=== PATIENT | female | born 1945 | race Caucasian/White ===

== ENCOUNTER 2018-11-20 14:11 | Emergency (ER) | payer MEDICARE, OTHER ==
[~2018-11-20] VITALS: Ht 162.6 cm; Wt 54.4 kg
[~2018-11-20 14:11] MED LIST: APTIOM600 MG PO; APTIOM800 MG PO; ASPI325 PO; ATOR10 PO; CALMAGZIN PO; CARV25 PO; CATAFLAM PO; CELE200 PO; CITA10S PO; CLON.2 PO; CLON1 PO; CLOP75 PO; Catapres0.2 MG PO; Coq-10100 MG PO; DEXILANT60 MG PO; DEXL60CA3 PO; DIAZ1KIT4; DIAZ1KIT4 PR; DICL25ER PO; DOCU100 PO; Diclofenac Sodi50 MG PO; ENABLEX PO; ESCI10 PO; FERR325 PO; FLUT.05NI; Flonase 0.05% N16 GM; GABA300 PO; IBUHYD PO; Keppra1000 MG PO; LAMO100 PO; LAMO25 PO; LEVE500 PO; LEVOFLOXACIN500 MG PO; LEVSOD25 PO; LEVSOD50 PO; LEVSOD75 PO; LORA.5 PO; LOSA50 PO; Lamictal200 MG PO; MIRABEGRON PO; MULVITMIND PO; MYRBETRIQ; MYRBETRIQ25 MG PO; NIFE30ER PO; OMEP40CA12 PO; OXCA300 PO; OXYC5 PO; PANT40 PO; RXLORA1 PO; TEMA30 PO; TOVIAZ; TRAACE PO; TRAZ150T57 PO; TRAZ50 PO; TRIHYD253A PO; VALS80 PO; VICODIN 5-3001 EACH PO; VITAMIN D5000 UNIT PO; [UNRECOGNIZED DRUG - OTHER]; [UNRECOGNIZED DRUG - OTHER] RC
[2018-11-20] MEDS ORDERED: FYCOMPA8 MG PO (14:21)
[2018-11-20] MEDS ORDERED: AMLO10 PO (14:22)
[2018-11-20] MEDS ORDERED: Protonix40 MG PO (14:22)
[2018-11-20] MEDS ORDERED: Aspirin EC81 MG PO (14:33)
[2018-11-20] MEDS ORDERED: Acetaminophen-1 EAC1 PO (16:58)
== END 2018-11-20 17:12 | disposition home or self-care (01) ==
LOC: ER 14:11
DX: S43.035A Inferior dislocation of left humerus, initial encounter (principal); W01.0XXA Fall on same level from slipping, tripping and stumbling without subsequent striking against object, initial encounter; I10 Essential (primary) hypertension; Z88.8 Allergy status to other drugs, medicaments and biological substances; Z88.5 Allergy status to narcotic agent; Z79.899 Other long term (current) drug therapy; Z79.82 Long term (current) use of aspirin
CPT/HCPCS: 23650; 73020; 73030; 96374-59; 99152; 99283-25; J2704; J3010; J7030

== ENCOUNTER 2019-04-09 15:49 | Observation (INO) | payer MEDICARE, OTHER ==
[~2019-04-09] VITALS: Ht 162.6 cm; Wt 63.5 kg
[~2019-04-09 15:49] MED LIST changes: +AMLO10 PO; +Acetaminophen-1 EAC1 PO; +Aspirin EC81 MG PO; +FYCOMPA8 MG PO; +Protonix40 MG PO
[2019-04-09 16:21] LABS: BASOPHILS ABSOLUTE AUTO 0.04 K/mm3 (0.00-0.23); BASOPHILS PERCENT AUTO 1 % (0-2); EOSINOPHILS ABSOLUTE AUTO 0.16 K/mm3 (0.00-0.68); EOSINOPHILS PERCENT AUTO 3 % (0-6); Hematocrit 35.5 % (33.0-51.0); Hemoglobin 11.7 g/dL (11.5-16.0); IMMATURE GRAN ABSOLUTE AUTO 0.05 K/mm3 (0.00-0.10); IMMATURE GRAN PERCENT AUTO 1 % (0-1); LYMPHOCYTES PERCENT AUTO 25 % (21-46); MONOCYTES ABSOLUTE AUTO 0.25 K/mm3 (0.16-1.47); MONOCYTES PERCENT AUTO 5 % (4-13); Mean Corpuscular HGB 32.2 pg (26.0-34.0); Mean Corpuscular Volume 98 fL (80-100); Mean Platelet Volume 10.4 fL (9.1-12.4); NEUTROPHILS ABSOLUTE AUTO 3.38 K/mm3 (1.96-9.15); NEUTROPHILS PERCENT AUTO 65 % (41-73); Platelet Count 289 K/mm3 (150-400); RDW Coefficient Variation 11.9 % (11.7-14.2); RDW Standard Deviation 43.6 fL (35.1-46.3); Red Blood Cell Count 3.63 M/mm3 (3.80-5.20); White Blood Cell Count 5.18 K/mm3 (4.00-11.30)
[2019-04-09 16:34] LABS: Source, Urine Clean Catch
[2019-04-09] MEDS ORDERED: DIAZ1KIT4 PR (16:38)
[2019-04-09] MEDS ORDERED: CLON1 PO (16:39)
[2019-04-09 16:46] LABS: Bilirubin, Urine Neg (Neg); Blood, Urine Neg (Neg); Glucose Qualitative, Urine Neg (Neg); Ketones, Urine 1+ (Neg); Leukocyte Esterase, Urine Neg (Neg); Nitrite, Urine Neg (Neg); Protein, Urine 2+ (Neg); Specific Gravity, Urine 1.015 (1.003-1.022); Urobilinogen, Urine NORM (Normal)
[2019-04-09 17:04] LABS: U Amphetamine Screen Not Detected; U Barbituate Screen Not Detected; U Benzodiazapine Screen Not Detected; U Buprenorphine Screen Not Detected; U Cannabinoids Screen Not Detected; U Cocaine Screen Not Detected; U Methadone Screen Not Detected; U Methamphetamine Screen Not Detected; U Opiates Screen Not Detected; U Oxycodone Screen Not Detected; U Phencyclidine Screen Not Detected; U Propoxyphene Screen Not Detected
[2019-04-09 17:08] LABS: Alanine Aminotransfer (ALT/SGP 15 U/L (12-78); Albumin, Blood 3.6 g/dL (3.4-5.0); Albumin/Globulin Ratio 1.2 (0.8-1.8); Alk Phos 69 U/L (50-136); Anion Gap 9 mmol/L (6-16); Aspartate Aminotrans (AST/SGOT 13 U/L (12-37); Bilirubin, Total 0.4 mg/dL (0.1-1.0); Blood Urea Nitrogen 17 mg/dL (8-24); Bun/Creatinine Ratio 29.1 (12.0-20.0); CO2, Blood 25 mmol/L (21-32); Chloride, Blood 105 mmol/L (98-108); Creatinine, Blood 0.59 mg/dL (0.40-1.00); Globulin, Blood 3.1 g/dL (2.2-4.0); Glomerular Filtration Rate >60 (60-); Glucose, Blood 88 mg/dL (70-99); Magnesium, Blood 1.8 mg/dL (1.6-2.4); Potassium, Blood 3.5 mmol/L (3.5-5.5); Sodium, Blood 139 mmol/L (136-145); Total Protein, Blood 6.7 g/dL (6.4-8.2)
[2019-04-09 17:13] LABS: Appearance, Urine Clear (Clear); Color, Urine Yellow (P-Yellow)
[2019-04-09 17:14] LABS: Bacteria Rare /hpf; Red Blood Cells, Urine 0-2 /hpf (0-2); Squamous Epithelial Cells Rare /hpf (Few); White Blood Cells, Urine 0-2 /hpf (0-5)
--- NOTE | 2019-04-09 20:30 | NUR ---
RECEIVED HAND OFF FROM MELVIN BOLTON IN ER USING SBAR. TRANSPORTED TO ROOM 339 VIA STRETCHER. TRANSFERED SELF FROM STRETCHER TO BED WITH STANDBY ASSISTANCE, TOLERATED WELL. AAO X3, BISWAS, FOLLOWS ALL COMMANDS. ORIENTED TO ROOM, CALL SYSTEM, AND POC, VOICES UNDERSTANDING. RESPIRATIONS EVEN AND UNLABORED ON ROOM AIR. LUNG SOUNDS CLEAR BILATERALLY. ABDOMEN SOFT AND NONDISTENDED. BOWEL SOUNDS PRESENT IN ALL QUADS. SEIZURE PRECAUTIONS IN PLACE. LEFT AC SL PIV IS PATENT, FLUSHING WITH EASE. REQUESTS A GLASS OF WATER AND AN EXTRA BLANKET. DENIES PAIN, DISCOMFORT, OR FURTHER NEEDS AT THIS TIME. ADMISSION ASSESSMENT IN PROGRESS. SAFETY MEASURES IN PLACE. WILL CONTINUE TO MONITOR.
[2019-04-09] MEDS ORDERED: Flonase 0.05% N16 GM (20:31)
[2019-04-09] MEDS ORDERED: PANT40 PO (20:34)
[2019-04-09] MEDS ORDERED: LUTEIN-ZEAXANT1 EACH PO (20:35)
--- NOTE | 2019-04-10 07:24 | NUR ---
SHIFT SUMMARY HAS RESTED WELL SINCE ADMISISON THIS SHIFT. NO EVEIDENCE OF SEIZURE ACTIVITY. HAS BEEN PLEASANT AND COOPERATIVE. DENEIS FURTHER NEEDS OR WANTS AT THIS TIME. SAFETY MEASURES IN PLACE. WILL CONTINUE TO MONITOR.
--- NOTE | 2019-04-10 12:58 | NUR ---
pt discharged THE PT AND HER FAMILY VERBALIZED UNDERSTANDING OF THE DC INSTRUCTIONS, PT REPORTED NO SEIZURE ACTIVITY OVER NIGHT AND NO SEIZURE WAS WITNESSED BY THE STAFF, PT WAS INSTRUCTED TO FOLLOW UPP WITH HER PCP AND NEUROLOGIST IN THE AM 04/11/19, PT TRANSFERED VIA WHEELCHAIR ACCOMPANIED BY THE CAR RENTAL AGENT AND HER FAMILY
== END 2019-04-10 13:30 | disposition home or self-care (01) ==
LOC: ER 15:49 → MEDS 15:50
PROVIDERS: Physician Assistant; ADMIT Hospitalist
DX: I69.398 Other sequelae of cerebral infarction (principal); R56.9 Unspecified convulsions; I69.351 Hemiplegia and hemiparesis following cerebral infarction affecting right dominant side; I69.320 Aphasia following cerebral infarction; I69.318 Other symptoms and signs involving cognitive functions following cerebral infarction; E03.9 Hypothyroidism, unspecified; E78.5 Hyperlipidemia, unspecified; I10 Essential (primary) hypertension; Z88.5 Allergy status to narcotic agent; Z88.8 Allergy status to other drugs, medicaments and biological substances; Z79.82 Long term (current) use of aspirin; Z79.899 Other long term (current) drug therapy
CPT/HCPCS: 51701; 70450; 71045; 80053; 80175; 80177; 81001; 83735; 85025; 90686; 93005; 93010; 99285-25; A9270; G0008; G0378

== ENCOUNTER 2019-11-30 08:15 | Day surgery (SDC) | payer MEDICARE, OTHER ==
[~2019-11-30] VITALS: Ht 157.5 cm; Wt 60.5 kg
[~2019-11-30 08:15] MED LIST changes: +LUTEIN-ZEAXANT1 EACH PO
--- NOTE | 2019-11-30 09:09 | NUR ---
11/30/[address] AT BEDSIDE INJECTED 10CC 2% LIDOCAINE W 1:100,000 EPI INTO RIGHT WRIST. PT MONITERED VIA PULSE OX.
--- NOTE | 2019-11-30 09:17 | NUR ---
11/30/19 0917 Timothy Bernal PT REPORTS CHLORAHEXIDINE ALLERGY, DR JACKSON AWARE. DR JACKSON OKAY WITH USING DURAPREP INSTEAD OF CHLORAPREP. PT HAS BANDAID COVERING SMALL RED DOT ON RIGHT FOREARM. THIS WAS NOTED BEFORE APPLYING 1010 DRAPE TO FOREARM.
== END 2019-11-30 10:25 | disposition home or self-care (01) ==
LOC: ORSCSDS 08:15
PROVIDERS: Orthopaedic Surgery
PROC: 01N54ZZ Release Median Nerve, Percutaneous Endoscopic Approach (ICD-10-PCS; principal; 2019-11-30 09:30)
DX: G56.01 Carpal tunnel syndrome, right upper limb (principal); I10 Essential (primary) hypertension; G47.33 Obstructive sleep apnea (adult) (pediatric); K21.9 Gastro-esophageal reflux disease without esophagitis; E78.00 Pure hypercholesterolemia, unspecified; G40.909 Epilepsy, unspecified, not intractable, without status epilepticus; I69.311 Memory deficit following cerebral infarction; Z79.899 Other long term (current) drug therapy
CPT/HCPCS: J1885; J2250; J2704; J3010; J7120

== ENCOUNTER → 2020-08-31 | Outpatient (CLI) | payer MEDICARE, OTHER ==
[2020-08-31 12:43] LABS: CHOL/HDL RATIO 2.7; Cholesterol 189 mg/dL (50-200); HDL Cholesterol 71 mg/dL (>39); LDL/HDL RATIO 1.4; Low Density Lipoprotein Chol 98 mg/dL (0-110); Triglycerides 99 mg/dL (30-160); Very Low Density Lipoprot Chol 19 mg/dL (6-32)
== END | disposition home or self-care (01) ==
LOC: LAB 10:39 → LAB SHORT 10:39
PROVIDERS: Psychiatry & Neurology Neurology
DX: E78.5 Hyperlipidemia, unspecified (principal); I67.9 Cerebrovascular disease, unspecified
CPT/HCPCS: 36415; 80061

== ENCOUNTER 2022-03-24 16:34 | Emergency (ER) | payer MEDICARE, OTHER ==
[~2022-03-24] VITALS: Ht 165.1 cm; Wt 63.5 kg
[~2022-03-24 16:34] MED LIST changes: +ONDA4ODT MM
[2022-03-24 17:31] LABS: BASOPHILS ABSOLUTE AUTO 0.05 K/mm3 (0.00-0.23); BASOPHILS PERCENT AUTO 1 % (0-2); EOSINOPHILS ABSOLUTE AUTO 0.08 K/mm3 (0.00-0.68); EOSINOPHILS PERCENT AUTO 1 % (0-6); Hematocrit 38.8 % (33.0-51.0); IMMATURE GRAN ABSOLUTE AUTO 0.04 K/mm3 (0.00-0.10); IMMATURE GRAN PERCENT AUTO 1 % (0-1); LYMPHOCYTES ABSOLUTE AUTO 2.13 K/mm3 (0.84-5.20); LYMPHOCYTES PERCENT AUTO 27 % (21-46); MONOCYTES ABSOLUTE AUTO 0.56 K/mm3 (0.16-1.47); MONOCYTES PERCENT AUTO 7 % (4-13); Mean Corpuscular HGB 31.8 pg (26.0-34.0); Mean Corpuscular HGB Conc 33.5 g/dL (31.5-36.5); Mean Corpuscular Volume 95 fL (80-100); Mean Platelet Volume 10.5 fL (9.1-12.4); NEUTROPHILS ABSOLUTE AUTO 5.06 K/mm3 (1.96-9.15); NEUTROPHILS PERCENT AUTO 64 % (41-73); Platelet Count 293 K/mm3 (150-400); RDW Coefficient Variation 12.7 % (11.7-14.2); RDW Standard Deviation 44.3 fL (35.1-46.3); Red Blood Cell Count 4.09 M/mm3 (3.80-5.20); White Blood Cell Count 7.92 K/mm3 (4.00-11.30)
[2022-03-24 17:51] LABS: Albumin, Blood 4.3 g/dL (3.4-5.0); Albumin/Globulin Ratio 1.3 (0.8-1.8); Bilirubin, Total 0.2 mg/dL (0.1-1.0); Bun/Creatinine Ratio 20.7 (12.0-20.0); Calcium, Blood 9.6 mg/dL (8.5-10.1); Creatinine, Blood 0.77 mg/dL (0.40-1.00); Globulin, Blood 3.3 g/dL (2.2-4.0); Potassium, Blood 4.2 mmol/L (3.5-5.5); Total Protein, Blood 7.6 g/dL (6.4-8.2)
== END 2022-03-24 23:07 | disposition home or self-care (01) ==
LOC: ER 16:34
PROVIDERS: Physician Assistant
DX: Z04.89 Encounter for examination and observation for other specified reasons (principal); I10 Essential (primary) hypertension; E03.9 Hypothyroidism, unspecified; E78.5 Hyperlipidemia, unspecified; Z79.82 Long term (current) use of aspirin; Z79.890 Hormone replacement therapy; Z79.899 Other long term (current) drug therapy; Z88.5 Allergy status to narcotic agent; Z88.8 Allergy status to other drugs, medicaments and biological substances; Z86.73 Personal history of transient ischemic attack (TIA), and cerebral infarction without residual deficits
CPT/HCPCS: 36415; 80053; 85025

== ENCOUNTER 2022-10-03 10:12 | Day surgery (SDC) | payer MEDICARE, OTHER ==
[~2022-10-03] VITALS: Ht 157.5 cm; Wt 62.1 kg
[2022-10-03] MEDS ORDERED: Amlodipine Bes2.5 MG (11:03)
[2022-10-03 13:50] VITALS: BP 125/80
== END 2022-10-03 13:00 | disposition home or self-care (01) ==
LOC: ORSCSDS 10:12
PROVIDERS: Student in an Organized Health Care Education/Training Program
PROC: 0DBK8ZX Excision of Ascending Colon, Via Natural or Artificial Opening Endoscopic, Diagnostic (ICD-10-PCS; principal; 2022-10-03 12:00)
PROC: 0DBH8ZX Excision of Cecum, Via Natural or Artificial Opening Endoscopic, Diagnostic (ICD-10-PCS; principal; 2022-10-03 12:00)
DX: R10.9 Unspecified abdominal pain (principal); Z80.0 Family history of malignant neoplasm of digestive organs; D12.2 Benign neoplasm of ascending colon; D12.0 Benign neoplasm of cecum; K57.30 Diverticulosis of large intestine without perforation or abscess without bleeding; K62.89 Other specified diseases of anus and rectum; I10 Essential (primary) hypertension; E78.5 Hyperlipidemia, unspecified; R10.32 Left lower quadrant pain; Z86.73 Personal history of transient ischemic attack (TIA), and cerebral infarction without residual deficits; R56.9 Unspecified convulsions; M19.90 Unspecified osteoarthritis, unspecified site; K21.9 Gastro-esophageal reflux disease without esophagitis; Z79.82 Long term (current) use of aspirin; Z79.899 Other long term (current) drug therapy
CPT/HCPCS: 88305; J2704; J7120

== ENCOUNTER 2023-04-23 18:10 | Emergency (ER) | payer MEDICARE, OTHER ==
[~2023-04-23] VITALS: Ht 160 cm; Wt 65.8 kg
[~2023-04-23 18:10] MED LIST changes: +Amlodipine Bes2.5 MG
[2023-04-23 18:27] VITALS: BP 142/80
[2023-04-23] MEDS ORDERED: FYCOMPA8 MG PO (19:47)
== END 2023-04-23 20:42 | disposition home or self-care (01) ==
LOC: ER 18:10
DX: S00.83XA Contusion of other part of head, initial encounter (principal); I10 Essential (primary) hypertension; E78.5 Hyperlipidemia, unspecified; E03.9 Hypothyroidism, unspecified; Z86.73 Personal history of transient ischemic attack (TIA), and cerebral infarction without residual deficits; Z79.899 Other long term (current) drug therapy; Z88.5 Allergy status to narcotic agent; Z88.8 Allergy status to other drugs, medicaments and biological substances; W05.0XXA Fall from non-moving wheelchair, initial encounter
CPT/HCPCS: 70450; 99284-25

== ENCOUNTER 2025-03-07 18:38 | Inpatient (IN) | payer MEDICARE, OTHER ==
[~2025-03-07] VITALS: Ht 160 cm; Wt 64.0 kg
[~2025-03-07 18:38] MED LIST changes: +ATOR20 PO; +ESCI20 PO
[2025-03-07 19:16] LABS: BASOPHILS ABSOLUTE AUTO 0.05 K/mm3 (0.00-0.23); BASOPHILS PERCENT AUTO 0 % (0-2); EOSINOPHILS ABSOLUTE AUTO 0.03 K/mm3 (0.00-0.68); EOSINOPHILS PERCENT AUTO 0 % (0-6); Hematocrit 38.8 % (33.0-51.0); Hemoglobin 12.8 g/dL (11.5-16.0); IMMATURE GRAN ABSOLUTE AUTO 0.07 K/mm3 (0.00-0.10); IMMATURE GRAN PERCENT AUTO 1 % (0-1); LYMPHOCYTES ABSOLUTE AUTO 0.87 K/mm3 (0.84-5.20); LYMPHOCYTES PERCENT AUTO 6 % (21-46); MONOCYTES ABSOLUTE AUTO 0.56 K/mm3 (0.16-1.47); MONOCYTES PERCENT AUTO 4 % (4-13); Mean Corpuscular HGB Conc 33.0 g/dL (31.5-36.5); Mean Corpuscular Volume 95 fL (80-100); NEUTROPHILS ABSOLUTE AUTO 13.21 K/mm3 (1.96-9.15); NEUTROPHILS PERCENT AUTO 89 % (41-73); NRBC ABSOLUTE 0.00 K/mm3 (0.00-0.02); NRBC Auto 0.0 /100 WBC (0.0-0.2); Platelet Count 319 K/mm3 (150-400); RDW Coefficient Variation 12.3 % (11.7-14.2); RDW Standard Deviation 42.8 fL (35.1-46.3)
[2025-03-07 19:28] LABS: Alanine Aminotransfer (ALT/SGP 15.0 U/L (12-78); Albumin, Blood 3.9 g/dL (3.4-5.0); Albumin/Globulin Ratio 1.1 (0.8-1.8); Anion Gap 10.0 mmol/L (3-11); Aspartate Aminotrans (AST/SGOT 17.0 U/L (12-37); Bilirubin, Total 0.3 mg/dL (0.1-1.0); Blood Urea Nitrogen 18.0 mg/dL (8-24); CO2, Blood 28.0 mmol/L (21-32); Calcium, Blood 9.5 mg/dL (8.5-10.1); Chloride, Blood 102.0 mmol/L (98-108); Creatinine, Blood 0.64 mg/dL (0.40-1.00); Globulin, Blood 3.5 g/dL (2.2-4.0); Glucose, Blood 123.0 mg/dL (70-99); Potassium, Blood 3.7 mmol/L (3.5-5.5); Sodium, Blood 136.0 mmol/L (136-145); Total Protein, Blood 7.4 g/dL (6.4-8.2)
[2025-03-07 19:52] LABS: Prothrombin Time Results 10.5 Sec (9.7-11.5)
[2025-03-07] MEDS ORDERED: LORazepam 2 MG/ML 1ML Injection IV ONE ×2 (20:25→20:55)
[2025-03-07] MEDS ORDERED: Ondansetron HCl 2 MG / ML 2ML Vial IV PRN (22:25)
[2025-03-07] MEDS ORDERED: LORazepam 2 MG/ML 1ML Injection IV PRN (22:25)
[2025-03-07] MEDS ORDERED: FLU VACC TS2025(65UP)/MF59C/PF 45 MCG/0.5 ML SYRINGE IM SCH (22:35)
[2025-03-07] MEDS ORDERED: AMLO5 PO (23:18)
[2025-03-07] MEDS ORDERED: FYCOMPA10 MG PO (23:18)
[2025-03-08 00:20] VITALS: BP 136/81
[2025-03-08 03:52] VITALS: BP 142/82
--- NOTE | 2025-03-08 05:26 | NUR ---
ADMIT NOTE/DRIVING TEACHER SUMMARY PT ADMITTED FROM ED THIS SHIFT FOR SEIZURE. ORIENTED TO ROOM, CALL LIGHT, AND FALL/SAFETY PRECAUTIONS. PT A&OX0, VSS. UNABLE TO ANSWER A&O QUESTIONS CORRECTLY, BUT IS ABLE TO COMMUNICATE NEEDS APPROPRIATELY USING SIMPLE YES OR NO QUESTIONS. EXPRESSIVE APHASIA NOTED. HX OF STROKE PER H&P. STAGE I PRESSURE ULCER NOTED ON ADMISSION. DR. KO NOTIFIED. MEPILEX PLACED PER ORDER AND REMAINS CDI. MULTIPLE BRUISES AND SCABS NOTED ON BLE. PICS OBTAINED AND PLACED IN CHART. IV LAC WNL. RUNNING LR PER EMAR. PT UNABLE TO COMPLETE MRI INTAKE FORM D/T COGNITION. NO CHANGES IN NEURO ASSESSMENT SINCE ADMISSION ONTO UNIT. PT REMAINS IMPULSIVE. DOES NOT CALL APPROPRIATELY FOR ASSISTANCE. BED ALARM ON, BED RAILS UP X 3, BED IN LOWEST POSITION, BED WHEELS LOCKED, PERSONAL BELONGINGS AND CALL LIGHT WITHIN REACH FOR SAFETY.
[2025-03-08 05:39] LABS: BASOPHILS ABSOLUTE AUTO 0.05 K/mm3 (0.00-0.23); BASOPHILS PERCENT AUTO 0 % (0-2); EOSINOPHILS ABSOLUTE AUTO 0.02 K/mm3 (0.00-0.68); EOSINOPHILS PERCENT AUTO 0 % (0-6); Hematocrit 36.8 % (33.0-51.0); Hemoglobin 12.3 g/dL (11.5-16.0); IMMATURE GRAN ABSOLUTE AUTO 0.04 K/mm3 (0.00-0.10); IMMATURE GRAN PERCENT AUTO 0 % (0-1); LYMPHOCYTES ABSOLUTE AUTO 2.57 K/mm3 (0.84-5.20); LYMPHOCYTES PERCENT AUTO 17 % (21-46); MONOCYTES ABSOLUTE AUTO 1.05 K/mm3 (0.16-1.47); MONOCYTES PERCENT AUTO 7 % (4-13); Mean Corpuscular HGB Conc 33.4 g/dL (31.5-36.5); Mean Corpuscular Volume 95 fL (80-100); NEUTROPHILS ABSOLUTE AUTO 11.21 K/mm3 (1.96-9.15); NEUTROPHILS PERCENT AUTO 75 % (41-73); NRBC ABSOLUTE 0.00 K/mm3 (0.00-0.02); NRBC Auto 0.0 /100 WBC (0.0-0.2); Platelet Count 301 K/mm3 (150-400); RDW Coefficient Variation 12.5 % (11.7-14.2); RDW Standard Deviation 43.2 fL (35.1-46.3)
[2025-03-08 06:21] LABS: Alanine Aminotransfer (ALT/SGP 17.0 U/L (12-78); Albumin, Blood 3.7 g/dL (3.4-5.0); Albumin/Globulin Ratio 1.1 (0.8-1.8); Anion Gap 9.0 mmol/L (3-11); Aspartate Aminotrans (AST/SGOT 38.0 U/L (12-37); Bilirubin, Total 0.6 mg/dL (0.1-1.0); Blood Urea Nitrogen 14.0 mg/dL (8-24); CO2, Blood 28.0 mmol/L (21-32); Calcium, Blood 9.2 mg/dL (8.5-10.1); Chloride, Blood 103.0 mmol/L (98-108); Creatinine, Blood 0.64 mg/dL (0.40-1.00); Globulin, Blood 3.3 g/dL (2.2-4.0); Glucose, Blood 114.0 mg/dL (70-99); Magnesium, Blood 2.3 mg/dL (1.6-2.4); Potassium, Blood 3.8 mmol/L (3.5-5.5); Sodium, Blood 136.0 mmol/L (136-145); Thyroid Stimulating Hormone 5.39 uIU/mL (0.360-4.800); Total Protein, Blood 7.0 g/dL (6.4-8.2)
[2025-03-08 07:14] VITALS: BP 155/81
[2025-03-08 08:07] LABS: U Amphetamine Screen Not Detected; U Barbiturate Screen Not Detected; U Benzodiazapine Screen DETECTED; U Buprenorphine Screen Not Detected; U Cannabinoids Screen Not Detected; U Cocaine Screen Not Detected; U Methadone Screen Not Detected; U Methamphetamine Screen Not Detected; U Opiates Screen Not Detected; U Oxycodone Screen Not Detected; U Phencyclidine Screen Not Detected
[2025-03-08] MEDS ORDERED: Enoxaparin 40 MG/0.4 ML SYR SC SCH (09:00)
[2025-03-08 12:26] LABS: Source, Urine Clean Catch
[2025-03-08 12:30] LABS: Bilirubin, Urine Neg (Neg); Glucose Qualitative, Urine Neg (Neg); Ketones, Urine Neg (Neg); Leukocyte Esterase, Urine Neg (Neg); Protein, Urine Neg (Neg); Specific Gravity, Urine 1.005 (1.003-1.022); Urobilinogen, Urine NORM (Normal)
[2025-03-08 12:51] LABS: Color, Urine Pale Yellow (P-Yellow)
[2025-03-08 15:05] VITALS: BP 164/87
[2025-03-08] MEDS ORDERED: Acetaminophen650 M1 PO (15:26)
[2025-03-08] MEDS ORDERED: LEVOTHYROXINE75 MC9 PO (15:32)
[2025-03-08] MEDS ORDERED: KEPPRA1000 M2 PO (15:32)
[2025-03-08] MEDS ORDERED: FYCOMPA10 MG PO (15:35)
[2025-03-08] MEDS ORDERED: DOCU100 PO (15:37)
[2025-03-08] MEDS ORDERED: SUBVENITE200 M1 PO (16:27)
--- NOTE | 2025-03-08 16:40 | NUR ---
PATIENT DC'D TO HOME WITH FAMILY. DC INSTRUCTIONS AND EDUCATION DISCUSSED WITH PATIENT AND FAMILY AND COPY PROVIDED. NO NEW MEDICATIONS ORDERED. PATIENT DENIES ANY FURTHER QUESTIONS OR CONCERNS.
[2025-03-10 10:13] LABS: KEPPRA (LEVETIRACETAM) 45.0 ug/mL (10.0-40.0)
[2025-03-10 10:16] LABS: LAMOTRIGINE 6.3 ug/mL (3.0-15.0)
== END 2025-03-08 16:48 | disposition home or self-care (01) | DRG 101 ==
LOC: ER 18:38 → MEDS 22:21 → ERHOLD 22:21 → MEDS 03-08 00:11
PROVIDERS: Internal Medicine; Student in an Organized Health Care Education/Training Program; ADMIT Student in an Organized Health Care Education/Training Program
DX: R56.9 Unspecified convulsions (principal); I69.351 Hemiplegia and hemiparesis following cerebral infarction affecting right dominant side; F41.9 Anxiety disorder, unspecified; I69.320 Aphasia following cerebral infarction; E78.5 Hyperlipidemia, unspecified; E03.9 Hypothyroidism, unspecified; Z96.641 Presence of right artificial hip joint; I10 Essential (primary) hypertension; Z90.710 Acquired absence of both cervix and uterus; Z23 Encounter for immunization; Z90.89 Acquired absence of other organs; Z98.49 Cataract extraction status, unspecified eye; Z87.19 Personal history of other diseases of the digestive system; Z88.8 Allergy status to other drugs, medicaments and biological substances; Z88.5 Allergy status to narcotic agent; Z79.899 Other long term (current) drug therapy; Z79.82 Long term (current) use of aspirin; Z79.890 Hormone replacement therapy
CPT/HCPCS: 36415; 70450; 73030; 80053; 81003; 83735; 84443; 84484; 85025; 85610; 85730; 93005; 93010; 96365; 96375; 99285-25; A9270; J1650; J1953; J2060; J7120